=== PATIENT | female | born 1950 | race Caucasian/White ===

== ENCOUNTER 2018-01-12 18:26 | Emergency (ER) | payer MEDICARE ==
[2018-01-12] MEDS ORDERED: LORAZEPAM 1 MG TABLET PO ONE (18:53)
--- NOTE | 2018-01-12 18:56 | ER Document Report ---
ED Medical Screen (RME) - General Chief Complaint: Shortness Of Breath Stated Complaint: NAUSEA, SHORT OF BREATH Time Seen by Provider: 01/12/18 18:48 Notes: This 67-year-old female patient complains of last night. She reports history of COPD on no medication. Some lightheadedness when standing. She reports intermittent spells of shortness of breath off and on all day along with a headache. She took some hydroxyzine this morning in case this was anxiety induced, does not think it helped very much. Pulse ox was 100% with respiratory rate measured at 26 at triage. Lungs are clear. She does seem a little anxious with frequent sighing which suggests this may all be anxiety related symptoms. I have greeted and performed a rapid initial assessment of this patient. A comprehensive ED assessment and evaluation of the patient, analysis of test results and completion of the medical decision making process will be conducted by additional ED providers. TRAVEL OUTSIDE OF THE [place] IN LAST 30 DAYS: No - Related Data Allergies/Adverse Reactions: butorphanol [From Stadol] Allergy (Verified 01/12/18 18:52) erythromycin base Allergy (Verified 01/12/18 18:52) metoclopramide [From Reglan] Allergy (Verified 01/12/18 18:52) Sulfa (Sulfonamide Antibiotics) Allergy (Verified 01/12/18 18:52) Past Medical History - Social History Chew tobacco use (# tins/day): No Frequency of alcohol use: Occasional Drug Abuse: None - Past Medical History Cardiac Medical History: Reports: Hx Hypercholesterolemia, Hx Hypertension Pulmonary Medical History: Reports: Hx COPD Renal/ Medical History: Denies: Hx Peritoneal Dialysis Past Surgical History: Reports: Hx Hysterectomy, Hx Orthopedic Surgery - back surg-2011,,,2002, Hx Tonsillectomy
--- NOTE | 2018-01-12 19:22 | RADIOLOGY REPORT (SQ) ---
EXAM DESCRIPTION: CHEST 2 VIEWS COMPLETED DATE/TIME: 01/12/2018 7:15 pm REASON FOR STUDY: SOB COMPARISON: None. EXAM PARAMETERS: NUMBER OF VIEWS: two views TECHNIQUE: Digital Frontal and Lateral radiographic views of the chest acquired. RADIATION DOSE: NA LIMITATIONS: none FINDINGS: LUNGS AND PLEURA: No opacities, masses or pneumothorax. No pleural effusion. MEDIASTINUM AND HILAR STRUCTURES: No masses or contour abnormalities. HEART AND VASCULAR STRUCTURES: Heart normal size. No evidence for failure. BONES: No acute findings. HARDWARE: None in the chest. OTHER: No other significant finding. IMPRESSION: NO ACUTE RADIOGRAPHIC FINDING IN THE CHEST. TECHNICAL DOCUMENTATION: JOB ID: [id number] [employer]- All Rights Reserved Reading location - IP/workstation name: [email or web address]
[2018-01-12 19:27] LABS: ABSOLUTE BASOPHILS # (AUTO) 0.1 10^3/uL (0.0-0.2); ABSOLUTE EOSINOPHILS # (AUTO) 0.2 10^3/uL (0.0-0.6); ABSOLUTE LYMPHOCYTES (AUTO) 2.7 10^3/uL (0.5-4.7); ABSOLUTE MONOCYTES (AUTO) 0.8 10^3/uL (0.1-1.4); ABSOLUTE NEUT (AUTO) 4.6 10^3/uL (1.7-8.2); BASOPHILS % (AUTO) 0.6 % (0-2); EOSINOPHILS % (AUTO) 1.8 % (0-6); HEMATOCRIT 34.9 % (36.0-47.0); HEMOGLOBIN 11.9 g/dL (12.0-15.5); LYMPHOCYTES % (AUTO) 32.5 % (13-45); MEAN CORPUSCULAR HEMOGLOBIN 31.6 pg (27.0-33.4); MEAN CORPUSCULAR HGB CONC 34.2 g/dL (32.0-36.0); MEAN CORPUSCULAR VOLUME 93 fl (80-97); PLATELET COUNT 353 10^3/uL (150-450); RED BLOOD COUNT 3.77 10^6/uL (3.72-5.28); RED CELL DISTRIBUTION WIDTH 13.9 % (11.5-14.0); SEGMENTED NEUTROPHILS % (AUTO) 55.1 % (42-78); TOTAL CELLS COUNTED % (AUTO) 100 %; WHITE BLOOD COUNT 8.4 10^3/uL (4.0-10.5)
[2018-01-12 19:58] LABS: ALANINE AMINOTRANSFERASE 59 U/L (9-52); ALBUMIN 4.2 g/dL (3.5-5.0); ALKALINE PHOSPHATASE 64 U/L (38-126); ANION GAP 11 (5-19); ASPARTATE AMINO TRANSFERASE 39 U/L (14-36); BILIRUBIN,DIRECT 0.2 mg/dL (0.0-0.4); BILIRUBIN,TOTAL 0.2 mg/dL (0.2-1.3); BLOOD UREA NITROGEN 18 mg/dL (7-20); CALCIUM 9.5 mg/dL (8.4-10.2); CARBON DIOXIDE 26 mmol/L (22-30); CHLORIDE 97 mmol/L (98-107); GLUCOSE 100 mg/dL (75-110); POTASSIUM 4.3 mmol/L (3.6-5.0); SODIUM 133.9 mmol/L (137-145); TOTAL PROTEIN 6.6 g/dL (6.3-8.2)
[2018-01-12] MEDS ORDERED: ALBUTEROL SULFATE 0.083% NEB 2.5 MG/3 ML AMPUL NEB ONE (20:17)
[2018-01-12 20:29] LABS: CREATINE KINASE MB 2.35 ng/mL (<4.55)
[2018-01-12 20:30] LABS: TROPONIN I < 0.012 ng/mL
[2018-01-12] MEDS ORDERED: ALBUTEROL SULFATE HFA (90 MCG/PUFF) 8 GM MDI (1 MDI/ER DISP) IH PRN (21:09)
--- NOTE | 2018-01-12 21:09 | ER Document Report ---
ED Respiratory Problem - General Chief Complaint: Shortness Of Breath Stated Complaint: NAUSEA, SHORT OF BREATH Time Seen by Provider: 01/12/18 18:48 Mode of Arrival: Ambulatory Information source: Patient Notes: Patient is a 67-year-old female with COPD who presents to the ER today for approximately 24 hours of shortness of breath intermittently, at rest and with exertion. Patient admits to intermittent wheezing as well. She admits to sinus pressure over the past couple of days as well as a productive cough. She admits to lightheadedness over the past week. She denies any syncopal episodes. She denies any dizziness "like the room is spinning." Patient has had this happen before and has had cardiac evaluation which was benign per patient years ago for this. Patient does not take anything for her COPD, does not have a nebulizer machine. She denies any fevers or chills, nausea, vomiting , diarrhea, abdominal pain or chest pain. TRAVEL OUTSIDE OF THE [place] IN LAST 30 DAYS: No - Related Data Allergies/Adverse Reactions: butorphanol [From Stadol] Allergy (Verified 01/12/18 18:52) erythromycin base Allergy (Verified 01/12/18 18:52) metoclopramide [From Reglan] Allergy (Verified 01/12/18 18:52) Sulfa (Sulfonamide Antibiotics) Allergy (Verified 01/12/18 18:52) Past Medical History - General Information source: Patient - Social History Smoking Status: Former Smoker Chew tobacco use (# tins/day): No Frequency of alcohol use: Occasional Drug Abuse: None Family History: Reviewed & Not Pertinent Patient has suicidal ideation: No Patient has homicidal ideation: No - Past Medical History Cardiac Medical History: Reports: Hx Hypercholesterolemia, Hx Hypertension Pulmonary Medical History: Reports: Hx COPD Renal/ Medical History: Denies: Hx Peritoneal Dialysis Past Surgical History: Reports: Hx Hysterectomy, Hx Orthopedic Surgery - back surg-2011,,,2003, Hx Tonsillectomy Review of Systems - Review of Systems Constitutional: No symptoms reported EENT: See HPI Cardiovascular: No symptoms reported Respiratory: See HPI Gastrointestinal: No symptoms reported Genitourinary: No symptoms reported Female Genitourinary: No symptoms reported Musculoskeletal: No symptoms reported Skin: No symptoms reported Hematologic/Lymphatic: No symptoms reported Neurological/Psychological: See HPI Physical Exam - Vital signs Vitals: Resp Pulse Ox 22 H 98 05/04/18 19:23 01/12/18 19:23 - Notes Notes: PHYSICAL EXAMINATION: GENERAL: Well-appearing and in no acute distress. HEAD: Atraumatic, normocephalic. EYES: No nystagmus appreciated, pupils equal round and reactive to light, extraocular movements intact, sclera anicteric, conjunctiva are normal. ENT: ear canals without erythema or foreign body, TMs pearly page with good bony landmarks, nares with mucoid discharge, oropharynx clear without exudates. Moist mucous membranes. NECK: Normal range of motion, supple without lymphadenopathy LUNGS: Mild expiratory wheezes, no rales or rhonchi. HEART: Regular rate and rhythm without murmurs ABDOMEN: Soft, no tenderness. No guarding, no rebound BACK: no vertebral tenderness, normal ROM GI/: no CVA tenderness EXTREMITIES: Normal range of motion, no pitting edema. No cyanosis. NEUROLOGICAL: Cranial nerves grossly intact. Normal sensory/motor exams. Good and equal strength bilaterally, Kernig and Brudzinski's signs negative, Romberg' s test normal, normal heel to terrazas testing PSYCH: Normal mood, normal affect. SKIN: Warm, Dry, normal turgor, no rashes or lesions noted Course - Re-evaluation Re-evalutation: 01/12/18 23:54 Laboratory workup is unremarkable today, chest x-ray shows no acute pathology, patient feels better after breathing treatment of albuterol and would like to go home. Patient had normal orthostatic vital signs without lightheadedness or syncope, presyncope. Patient will go home with azithromycin, prednisone and albuterol inhaler from the emergency department. I also did provide a prescription for albuterol as she states her granddaughter has a nebulizer machine that she can use. - Vital Signs Vital signs: Temp Pulse Resp BP Pulse Ox 89 23 H 158/70 H 99 01/12/18 21:01 01/12/18 21:01 01/12/18 21:01 01/12/18 21:01 - Laboratory Result Diagrams: 01/12/18 19:00 01/12/18 19:00 Laboratory results interpreted by me: 01/12/18 01/12/18 01/12/18 19:00 19:00 19:00 Hgb 11.9 L Hct 34.9 L Sodium 133.9 L Chloride 97 L AST 39 H ALT 59 H Creatine Kinase 163 H Discharge - Discharge Clinical Impression: SOB (shortness of breath) COPD (chronic obstructive pulmonary disease) Qualifiers: COPD type: unspecified COPD Qualified Code(s): J44.9 - Chronic obstructive pulmonary disease, unspecified Condition: Stable Disposition: HOME, SELF-CARE Instructions: Chronic Obstructive Lung Disease ([facility]) Additional Instructions: Return immediately for any new or worsening symptoms. Follow up with primary care provider, call tomorrow to make followup appointment. Prescriptions: Albuterol Sulfate [Albuterol Sulfate 2.5mg/3 mL] 1 vial IH Q4 PRN #25 vial PRN Reason: Azithromycin [Zithromax 250 mg Tablet] 250 mg PO ASDIR PRN #6 tablet PRN Reason: Referrals: ROBINSON LE MD [Primary Care Provider] - Follow up as needed
[2018-01-12] MEDS ORDERED: METHYLPREDNISOLONE INJ 125 MG/2 ML SDV IM ONE (21:14)
--- NOTE | 2018-01-12 21:31 | EKG REPORT ---
SEVERITY:- NORMAL ECG - SINUS RHYTHM : Confirmed by: Brenda Phelps 12-Jan-2018 21:30:55
[2018-01-12 21:32] VITALS: BP 133/85
== END 2018-01-12 21:45 | disposition home or self-care (01) ==
LOC: EDBD 18:26 → ER 18:26
DX: J44.9 Chronic obstructive pulmonary disease, unspecified (principal); R06.02 Shortness of breath; J34.89 Other specified disorders of nose and nasal sinuses; R05 Cough; R42 Dizziness and giddiness; I10 Essential (primary) hypertension; Z88.5 Allergy status to narcotic agent; Z88.1 Allergy status to other antibiotic agents; Z88.2 Allergy status to sulfonamides; Z88.8 Allergy status to other drugs, medicaments and biological substances; Z87.891 Personal history of nicotine dependence
CPT/HCPCS: 93005; 94640; 99285; 96372; 36415; 82553; 82550; 85025; 80053; 84484; 85379; 71046; 93010; J2930; A9270 ×2; J3490

== ENCOUNTER 2018-05-01 15:31 | Emergency (ER) | payer MEDICARE ==
[2018-05-01] MEDS ORDERED: NORMAL SALINE 1000 ML 1,000 ML IV ONE (16:27)
[2018-05-01] MEDS ORDERED: ONDANSETRON HCL INJ/PF 4 MG/2 ML SDV IV ONE (16:28)
--- NOTE | 2018-05-01 16:34 | ER Document Report ---
ED GI/ - General Chief Complaint: Urinary Problem Stated Complaint: FLANK PAIN Time Seen by Provider: 05/01/18 16:21 Information source: Patient Notes: 67-year-old female that presents today with the onset 10 days ago of some pain with urination, body aches, and left flank pain. Patient 5 days ago went to [facility] and was placed on Macrobid. She states that they did not do any laboratory work or imaging otherwise. Patient states she has had no fevers for the last 5 days but still feels some left flank pain with some dysuria. Patient states she has had a kidney stone 20 years ago. She denies any vomiting , diarrhea, or radiation to the lower abdomen. She denies runny nose, congestion, cough, headache, neck pain, or rash. TRAVEL OUTSIDE OF THE [place] IN LAST 30 DAYS: No - HPI Patient complains to provider of: Other - See above Onset: Other - See above Timing/Duration: Gradual Quality of pain: Achy Severity at maximum: Moderate Severity in ED: Mild Location: Other - See above Sexual history: Inactive Associated symptoms: Other - See above Exacerbated by: Denies Relieved by: Denies Similar symptoms previously: No Recently seen / treated by doctor: No - Related Data Allergies/Adverse Reactions: butorphanol [From Stadol] Allergy (Verified 01/12/18 18:52) butorphanol tartrate [From Stadol] Allergy (Verified 01/28/17 14:12) erythromycin base Allergy (Verified 01/12/18 18:52) metoclopramide [From Reglan] Allergy (Verified 01/12/18 18:52) Sulfa (Sulfonamide Antibiotics) Allergy (Verified 01/12/18 18:52) Past Medical History - General Information source: Patient - Social History Smoking Status: Unknown if Ever Smoked Family History: Arthritis, Malignancy, CAD, DM, Hyperlipidemia, Hypertension, Reviewed & Not Pertinent, Thyroid Disfunction Patient has suicidal ideation: No Patient has homicidal ideation: No - Past Medical History Cardiac Medical History: Reports: Hx Hypercholesterolemia, Hx Hypertension Pulmonary Medical History: Reports: Hx COPD Neurological Medical History: Reports: Hx Migraine Renal/ Medical History: Denies: Hx Peritoneal Dialysis GI Medical History: Reports: Hx Gastroesophageal Reflux Disease, Hx Hiatal Hernia, Hx Irritable Bowel, Hx Ulcer, Hx Colonoscopy, Hx Endoscopy Musculoskeletal Medical History: Reports Hx Arthritis - Ankylosing spondylosis, Reports Hx Musculoskeletal Deformity, Reports Hx Musculoskeletal Trauma Psychiatric Medical History: Reports: Hx Depression Traumatic Medical History: Reports: Hx Fractures Past Surgical History: Reports: Hx Hysterectomy, Hx Orthopedic Surgery - Multiple back surgeries multiple neck surgeries, left ankle, Hx Tonsillectomy, Hx Urinary Tract Surgery - Bladder tack - Immunizations Immunizations up to date: Yes Hx Diphtheria, Pertussis, Tetanus Vaccination: Yes Review of Systems - Review of Systems Constitutional: denies: Fever EENT: denies: Eye discharge, Nose discharge Respiratory: denies: Short of breath Gastrointestinal: denies: Vomiting Genitourinary: Dysuria Musculoskeletal: denies: Leg swelling Skin: Other - no hives. denies: Rash Neurological/Psychological: Other - no slurred speech -: Yes All other systems reviewed and negative Physical Exam - Vital signs Vitals: Temp Pulse Resp BP Pulse Ox 97.9 F 70 18 138/59 H 95 05/01/18 15:37 05/01/18 15:37 05/01/18 15:37 05/01/18 15:37 05/01/18 15:37 Notes: Reviewed vital signs and nursing note as charted by RN. CONSTITUTIONAL: Alert and oriented and responds appropriately to questions. Well -appearing; well-nourished HEAD: Normocephalic; atraumatic EYES: Sclerae non-icteric ENT: Moist mucous membranes; pharynx without lesions noted NECK: Supple without meningismus; non-tender; no cervical lymphadenopathy, no masses CARD: Regular rate and rhythm; no murmurs; symmetric distal pulses RESP: Normal chest excursion without splinting or tachypnea; breath sounds clear and equal bilaterally ABD/GI: Normal bowel sounds; non-distended; soft, non-tender currently to deep palpation of all 4 quadrants of the abdomen BACK: The back appears normal and is non-tender to palpation, minimal CVA tenderness to the left flank without any obvious swelling or erythema noted EXT: Normal ROM in all joints; non-tender to palpation, no edema SKIN: Normal color for age and race; no acute lesions noted NEURO: Moves all extremities equally; Motor and sensory function intact PSYCH: The patient's mood and manner are appropriate. Grooming and personal hygiene are appropriate. Course - Re-evaluation Re-evalutation: 05/01/18 16:33 Given the history and physical examination we will order repeat urinalysis, urine culture, basic labs including chemistry, and a renal colic CT protocol to evaluate for any possible kidney stone or obvious pyelonephritis. 05/01/18 19:19 CT scan of the abdomen and pelvis as recorded. Urine analysis and white blood cell count is recorded. Kidney function is recorded. I will provide a gram of Rocephin and start the patient on Bactrim and strict return precautions and follow-up with the primary care provider. Patient still has no tenderness to palpation of the abdomen. Vital signs are stable. 05/01/18 19:27 Patient states she is allergic to sulfa, Levaquin, and most likely failed Macrobid secondary to a kidney infection. Pain is controlled and she has no vomiting so I believe she could be treated as an outpatient. I will provide a dose of Rocephin and start the patient on a course of ciprofloxacin which she states she has tolerated previously. - Vital Signs Vital signs: Temp Pulse Resp BP Pulse Ox 97.9 F 70 18 138/59 H 95 05/01/18 15:37 05/01/18 15:37 05/01/18 15:37 05/01/18 15:37 05/01/18 15:37 - Laboratory Result Diagrams: 05/01/18 17:17 05/01/18 17:17 Laboratory results interpreted by me: 05/01/18 05/01/18 05/01/18 16:50 17:17 17:17 Hgb 11.7 L Hct 34.9 L RDW 14.1 H Potassium 3.5 L AST 50 H Ur Leukocyte Esterase SMALL H Discharge - Discharge Clinical Impression: Left flank pain UTI (urinary tract infection) Qualifiers: Urinary tract infection type: site unspecified Hematuria presence: without hematuria Qualified Code(s): N39.0 - Urinary tract infection, site not specified Condition: Good Disposition: HOME, SELF-CARE Additional Instructions: Come back immediately for any increased pain, fevers, inability urinate, vomiting, any abdominal pain, or any other acute problems. Please follow-up with your primary care physician regarding the urine culture results and take the antibiotics as prescribed. Prescriptions: Ciprofloxacin HCl [Cipro 500 mg Tablet] 500 mg PO BID #20 tablet Referrals: ROBINSON LE MD [NO LOCAL MD] - Follow up as needed
[2018-05-01] MEDS: MORPHINE SULFATE 10 MG/ML INJ IV ONE ×2 (17:07→18:57)
[2018-05-01 17:32] LABS: ABSOLUTE BASOPHILS # (AUTO) 0.1 10^3/uL (0.0-0.2); ABSOLUTE EOSINOPHILS # (AUTO) 0.3 10^3/uL (0.0-0.6); ABSOLUTE LYMPHOCYTES (AUTO) 2.7 10^3/uL (0.5-4.7); ABSOLUTE MONOCYTES (AUTO) 0.6 10^3/uL (0.1-1.4); BASOPHILS % (AUTO) 1.2 % (0-2); EOSINOPHILS % (AUTO) 4.2 % (0-6); HEMATOCRIT 34.9 % (36.0-47.0); HEMOGLOBIN 11.7 g/dL (12.0-15.5); LYMPHOCYTES % (AUTO) 34.9 % (13-45); MEAN CORPUSCULAR HEMOGLOBIN 30.2 pg (27.0-33.4); MEAN CORPUSCULAR HGB CONC 33.6 g/dL (32.0-36.0); MEAN CORPUSCULAR VOLUME 90 fl (80-97); MONOCYTES % (AUTO) 7.9 % (3-13); PLATELET COUNT 386 10^3/uL (150-450); RED BLOOD COUNT 3.87 10^6/uL (3.72-5.28); RED CELL DISTRIBUTION WIDTH 14.1 % (11.5-14.0); SEGMENTED NEUTROPHILS % (AUTO) 51.8 % (42-78); TOTAL CELLS COUNTED % (AUTO) 100 %; WHITE BLOOD COUNT 7.8 10^3/uL (4.0-10.5)
[2018-05-01] MEDS ORDERED: DIAZEPAM 5 MG TABLET PO ONE (17:46)
[2018-05-01 17:49] LABS: APPEARANCE,URINE CLEAR; BILIRUBIN,URINE NEGATIVE (NEGATIVE); COLOR,URINE YELLOW; GLUCOSE, URINE NEGATIVE (NEGATIVE); KETONES,URINE NEGATIVE (NEGATIVE); LEUKOCYTE ESTERASE,URINE SMALL (NEGATIVE); NITRITE,URINE NEGATIVE (NEGATIVE); PROTEIN,URINE NEGATIVE (NEGATIVE); URINE SPECIFIC GRAVITY 1.005; UROBILINOGEN,URINE NEGATIVE mg/dL (<2.0)
[2018-05-01 18:06] LABS: ALANINE AMINOTRANSFERASE 27 U/L (9-52); ALBUMIN 4.3 g/dL (3.5-5.0); ALKALINE PHOSPHATASE 74 U/L (38-126); ANION GAP 12 (5-19); ASPARTATE AMINO TRANSFERASE 50 U/L (14-36); BILIRUBIN,TOTAL 0.4 mg/dL (0.2-1.3); BLOOD UREA NITROGEN 12 mg/dL (7-20); CALCIUM 9.1 mg/dL (8.4-10.2); CARBON DIOXIDE 22 mmol/L (22-30); CHLORIDE 106 mmol/L (98-107); GLUCOSE 98 mg/dL (75-110); POTASSIUM 3.5 mmol/L (3.6-5.0); SODIUM 140.4 mmol/L (137-145)
[2018-05-01 18:07] LABS: BILIRUBIN,DIRECT 0.3 mg/dL (0.0-0.4); LIPASE 52.5 U/L (23-300); TOTAL PROTEIN 7.4 g/dL (6.3-8.2)
--- NOTE | 2018-05-01 19:02 | RADIOLOGY REPORT (SQ) ---
EXAM DESCRIPTION: CT LTD RENAL STONE PROTOCOL ON COMPLETED DATE/TIME: 05/01/2018 6:46 pm REASON FOR STUDY: 39; left flank pain COMPARISON: None. TECHNIQUE: CT scan of the abdomen and pelvis performed without intravenous or oral contrast. Images reviewed with lung, soft tissue, and bone windows. Reconstructed coronal and sagittal MPR images revi ewed. All images stored on PACS. All CT scanners at this facility use dose modulation, iterative reconstruction, and/or weight based d osing when appropriate to reduce radiation dose to as low as reasonably achievable (ALARA). [facility]: Dose Right [facility]: CareDose [facility]: Dose Right [facility]: Teradose 4D [facility]: Smart Health Enhancement Products RADIATION DOSE: CT Rad equipment meets quality standard of care and radiation dose reduction techniq ues were employed. CTDIvol: 11.0 mGy. DLP: 593 mGy-cm.mGy. LIMITATIONS: None. FINDINGS: LOWER CHEST: Subcentimeter right middle lobe pulmonary nodule has negative Hounsfield unit s, likely fat. Doubtful clinical significance. No suspicious lung base changes. NON-CONTRASTED LIVER, SPLEEN, ADRENALS: Evaluation limited by lack of IV contrast. No identified sign ificant masses. PANCREAS: No masses. No peripancreatic inflammatory changes. GALLBLADDER: No identified stones by CT criteria. No inflammatory changes to suggest cholecystitis. RIGHT KIDNEY AND URETER: Incidental extrarenal pelvis but no stones or mass or true hydronephrosis. LEFT KIDNEY AND URETER: No solid masses. No significant calcification. No hydronephrosis or hydrouret er. AORTA AND RETROPERITONEUM: Calcified. No aneurysm. No retroperitoneal mass. BOWEL AND PERITONEAL CAVITY: Distal large bowel diverticular disease but no active diverticulitis sug gested. No evidence of mechanical bowel obstruction, ascites or abnormal gas. APPENDIX: Normal. PELVIS, BLADDER, AND ABDOMINAL WALL:Numerous calcified pelvic phleboliths. None of these calcificati ons appears to lie in the ureter or within the bladder. No pelvic mass or free fluid. No abdominal wall mass or bowel containing hernia. BONES: No significant findings. OTHER: No other significant finding. IMPRESSION: 1. No acute or suspicious abdominopelvic abnormality. Specifically, no evidence of urin joaquín tract obstruction or stones. TECHNICAL DOCUMENTATION: JOB ID: [id number] Quality ID # [id number]: Final reports with documentation of one or more dose reduction techniques (e.g., Au tomated exposure control, adjustment of the mA and/or kV according to patient size, use of iterative reconstruction technique) 2010 [email or web address]- All Rights Reserved Reading location - IP/workstation name: [email or web address]
[2018-05-01] MEDS ORDERED: CEFTRIAXONE 1 GM/D5W RTU 1 GM/50 ML RTUPB IV ONE (19:18)
[2018-05-01] MEDS ORDERED: CEFTRIAXONE INJ 1000 MG VIAL ONE (19:42)
[2018-05-01 20:34] VITALS: BP 139/79
== END 2018-05-01 20:40 | disposition home or self-care (01) ==
LOC: ER 15:31
DX: N39.0 Urinary tract infection, site not specified (principal); R30.0 Dysuria; M79.1 Myalgia; R10.9 Unspecified abdominal pain; I10 Essential (primary) hypertension
CPT/HCPCS: 99284; 96361; 96374; 96375; 36415; 87086; 83690; 85025; 80076; 80048; 81001; 76380; A9270; J2270; J0696; J2405; J7030